=== PATIENT | male | born 2000 | race Caucasian/White ===

== ENCOUNTER 2022-11-29 17:12 | Outpatient (CLI) | payer OTHER, SELFPAY | END 2022-11-29 17:13 | disposition home or self-care (01) | LOC: ANHLAB 17:14 | PROVIDERS: PCP Family Medicine; Visit Provider Surgery | DX: K40.90 Unilateral inguinal hernia, without obstruction or gangrene, not specified as recurrent (principal); Z01.818 Encounter for other preprocedural examination | CPT/HCPCS: 36415; 86850; 86900; 86901 ==

== ENCOUNTER 2022-12-01 01:21 | Day surgery (SDC) | payer OTHER, SELFPAY ==
[2022-11-24 11:53] VITALS: BMI 19.1
--- NOTE | 2022-11-24 12:12 | PC.NURSE ---
Report to the Outpatient Waiting Room, entrance under the green pavilion located off [facility], at time _0730 on date 12/01/22. Planned Procedure Time: 09. Time changes happen often and if your time is changed the preop area will call you the afternoon before. - You and your visitor will be asked to self-screen and do not enter if you have any COVID symptoms. - Only one visitor is requested with a max of two and NO children visitors are allowed at this time. - The patient visitor may be requested to leave or wait in car when not with patient due to distancing restrictions. - A mask is optional within the hospital at this time. Patients may have clear liquids (water, carbonated beverages, clear teas, apple juice) until 3 hours prior to surgery with a maximum of 20 ounces. - No food from midnight until time of surgery - Infants may have breast milk until 4 hours before surgery, formula 6 hours prior to surgery. - Children will be allowed to drink immediately following surgery. If applicable, please bring a bottle or sippy cup to assist with drinking. Juice, water, soda, and popsicles are readily available. For infants on formula, please bring formula the day of surgery. Pacifiers are allowed. Take the following medications with a SIP of water the morning of surgery: _n/a__ DO NOT STOP ANY OF YOUR OTHER PRESCRIPTION MEDICATIONS PRIOR TO SURGERY ?EXCEPT THE FOLLOWING Medications to discontinue per physician n/a Date to take last dose Please no make-up, nail macedonian, hairspray, perfume, deodorant, or body powder the day of surgery. No jewelry (including any body piercings) or valuables the day of surgery, leave them at home. Please take a shower or bath the night before, or the morning of, surgery with an Hibiclens soap. Wear comfortable, loose fitting clothing. Children are encouraged to wear pajamas. - Jewelry must be removed prior to entering the operating room. Rings and piercings that are not removed may be cut off. - The hospital will not accept responsibility for valuables. - Please leave all valuables, including medications, at home the day of surgery. If you are going home after surgery, a licensed cross country truck driver must drive you home. - NO public transportation without another adult if you receive anesthesia. - We recommend that an adult stay with you for 24 hours following discharge. - We also recommend that you do not drive, make important decision, drink alcoholic beverages, or take any drugs that were not prescribed by your health care provider for at least 24 hours after your discharge time. For Pediatric surgeries, we recommend two adults accompany the child home. Follow any additional instructions given to you from your surgeon. If you or anyone in your household have experienced Covid symptoms in the past week, please notify your surgeon or the nurse liaison at the phone number below for possible testing. Telephone instructions given to Michael Roy and asked if any additional questions and then verbalized understanding. Patient advised to call surgeon office or pre surgery nurse liaison [phone] if any additional questions.
--- NOTE | 2022-11-30 15:07 | WPDANESEPPF ---
Anes - Initial Pre Proc Eval Procedure: Operation Date: 12/01/22 09:30 Proposed Procedures p Robotic Assisted Laparoscopic Left Inguinal Hernia Repair with Mesh - Zackery Mock MD Date/Time: 11/30/22 15:07 Surgeon: Zackery Mock MD Pre Op Diagnosis: reducible Left Ing hernia Patient Data Age: 21 Gender: M Height: 1.83 m Weight: 64 kg Allergies Allergy/AdvReac Type Severity Reaction Status Date / Time No Known Drug Allergies Allergy Unknown other Verified 11/17/22 13:03 Home Medications Medication Instructions Recorded Confirmed Type No Home Medications 11/03/22 11/24/22 History Patient hx anesthesia problems: none Family hx anesthesia problems: none Results Review: All pre-operative results and documents have been reviewed as part of the pre-operative evaluation. [facility] Past Medical History Medical History (Updated 11/30/22 @ 15:07 by Luke Plata MD) Inguinal hernia without obstruction or gangrene Family History Family History Grandparent Cerebrovascular accident Cancer Social History Social History Smoking status: Never smoker Second hand tobacco smoke exposure: No Alcohol intake: current Substance use: never Lack of Transportation: No Lack of Food: Never True Current Housing: I Have Housing Concerned About Future Housing: No Difficulty Paying Gas/Electric Bills: No Difficulty Paying for Meds: No Currently Unemployed: No Education: Bachelor's Degree Difficulty w/ Childcare or Family Care: No Living arrangements: with family Occupation/Education: student Gender identity (if verbalized by the patient): Male Spiritual care concerns: No Agree to blood products: Yes Anes - Eval Final PreProcedure Day of Procedure 11/30/22 15:07 Patient weight: normal Heart: regular rate and rhythm Lungs: clear to auscultation and normal air movement Airway: Mallampati scale class II Neurological: alert and oriented Last oral intake: >/= 8 hours ASA classification: I Emergent: no Anesthetic plan: proceed Anesthesia type and monitoring: general ETT Results Review: All pre-operative results and documents have been reviewed as part of the pre-operative evaluation. Informed Consent: The patient's anesthetic plan and its attendant risks and benefits were discussed with the patient/family/POA. Questions were solicited and answers provided to the satisfaction of the patient/family/POA.
[2022-12-01] VITALS (9 sets, daily range): BP systolic 97–134; BP diastolic 41–83; PULSE 55–94; RESP 15–20; TEMP 36.3–36.9; O2SAT 100; BMI 20.4
[2022-12-01] MEDS: LACTATED RINGERS 1,000 ML 30 ML IV CONT ×3 (08:00→14:29)
--- NOTE | 2022-12-01 08:02 | WPDHPUPDATE1 ---
History and Physical Update Update Date/Time: 12/01/22 08:02 History and Physical has been reviewed, including an updated exam of the patient. There are NO changes in the patient's condition. Risks, benefits, and alternatives have been discussed and questions answered. Patient agrees to proceed with procedure.
[2022-12-01] MEDS: ACETAMINOPHEN 500 MG TABLET 1000 MG PO (08:10)
[2022-12-01] MEDS: KETOROLAC 15 MG/ML VIAL (*BKC) IV PUSH ×2 (08:10→11:59)
[2022-12-01] MEDS: ceFAZolin 2 GM/D5W 50 ML 2 GM/50 ML BAG IVPB (09:28)
[2022-12-01] MEDS: BUPivacaine HCL 0.25% PF 10 ML VIAL 30 ML INFILTRATE (12:03)
[2022-12-01] MEDS: LIDO 1%/EPINEPHRINE 1:100,000 50 ML VIAL 30 ML INFILTRATE (12:05)
--- NOTE | 2022-12-01 12:25 | W.PM.PROC2 ---
Procedure Note - Detailed Date of Procedure 12/01/22 Pre-op Diagnosis Reducible Left Ing hernia Post-op Diagnosis Same (Reducible indirect left inguinal hernia.) Procedure Performed Robotic assisted laparoscopic left inguinal hernia repair with Bard 3D mid weight mesh (17 x 12 cm) Surgeon Zackery Mock MD [employer] Teacher KIANA Rodrigues Anesthesia General Indications Patient presented with a symptomatic enlarging bulge in left groin region was found to have a reducible left inguinal hernia. He presents now for repair left inguinal hernia with mesh reinforcement via robotic assisted laparoscopic approach. Findings Large left indirect inguinal hernia defect. Adhesion of omentum into the hernia sac but no involvement of bowel. Description of Procedure After informed consent was obtained patient was brought to the operating room was placed in supine position and then general endotracheal anesthesia was administered. The abdomen and bilateral groin regions were then prepped and draped in usual sterile fashion. A time-out was then performed correctly identifying the patient as well as the procedure to be performed and verifying the site marking. He was given perioperative IV antibiotics. If her started by in the abdomen left upper quadrant utilizing a 5mm Optiview port. Once inside the abdomen I insufflated to adequate pneumoperitoneum of 15mmHg of CO2. There was a large indirect left inguinal hernia defect with a small portion of the omentum adherent to the hernia sac. No evidence of a right inguinal hernia was seen. I then placed additional 8mm robotic trocar ports across the abdomen. This is all done under direct visualization. I then had Jayson robot the patient's bedside and docked to the right side of the operating room table I then attached the robotic arms the robotic ports. I then scrubbed out the procedure and sat down at the robotic console to perform the dissection robotically. I 1st started by making a peritoneal flap extending from just anterior medial to the left anterior superior iliac spine and medial across the midline to divide the left medial umbilical ligament. This is all done with robotic hook electrocautery. Medially I continue my dissection of the preperitoneal flap down until I identified the pubic tubercle. Dissected posterior to the bladder and down into the space of Retzius for couple of cm. More laterally I then continued taking down the peritoneal flap and then dissected the large indirect inguinal hernia sac out of the inguinal canal. The vas deferens and testicular vessels were identified and preserved without injury throughout the procedure. The hernia sac was everted and then the peritoneal flap was dissected proximally up onto the psoas muscle until the testicular vessels from the vas deferens. There was no evidence of a direct defect and no evidence of a femoral hernia either. I then measured the space and I chose a piece of Bard 3D mid weight mesh oriented for the left side. It was placed into the abdomen through 1 of the trocar port sites and then placed into the dissected space so that would cover the home mild pectineal orifice. The medial portion of the mesh extended down into the space of Retzius for couple cm. I then secured the medial portion the mesh to the tissue around the pubic tubercle utilizing interrupted 2-0 Vicryl sutures. Laterally the mesh was secured to the muscle anterior medial to the left anterior superior iliac spine with the same 2-0 Vicryl sutures. Additional Vicryl suture was used to approximate the mesh to the area the potential direct space. I then proceeded to close the peritoneal flap by placing a running 2-0 absorbable V lock suture. When the flap was closed the mesh was completely excluded from the intra-abdominal viscera. There were no holes in the peritoneum to close. I then proceeded to remove all the trocar ports under direct visualization. The port sites were hemostatic and
[2022-12-01] MEDS: oxyCODONE HCL (*CRX) 5 MG TAB IR PO (13:44)
[2022-12-01] MEDS: fentaNYL CITRATE INJ (*CRX) 100 MCG/2 ML VIAL 25 MCG IV PUSH ×2 (14:19→14:35)
== END 2022-12-01 15:41 | disposition home or self-care (01) ==
PROVIDERS: PCP Family Medicine; Visit Provider Surgery
PROC: 8E0Y4CZ Robotic Assisted Procedure of Lower Extremity, Percutaneous Endoscopic Approach (ICD-10-PCS; CPT 49650; principal; 2022-12-01 09:30)
DX: K40.90 Unilateral inguinal hernia, without obstruction or gangrene, not specified as recurrent (principal)
CPT/HCPCS: 49650; S2900; 36415; 86850; 86900; 86901; A9270; C1781; J0690; J1100; J1170; J1200; J1885; J2250; J2405; J2704; J3010; J7030; J7120